=== PATIENT | female | born 1995 | race Caucasian/White ===

== ENCOUNTER → 2018-05-17 10:18 | Outpatient (CLI) | payer OTHER, BC, SELFPAY ==
[2018-05-17 11:21] LABS: Absolute Neutrophil Count 4.9 X10^3/uL (2.0-7.7); Basophil# 0.07 X10^3/uL; Basophil% 0.8 % (0-1); Eosinophil# 1.55 X10^3/uL; Eosinophils% 17.1 % (0-5); Hematocrit 41.4 % (37-47); Hemoglobin 13.3 g/dl (12.0-15.0); Mean Corp Hgb Conc 32.1 g/gl (32-36); Mean Corpuscular Volume 90.2 fL (81-99); Mean Platelet Vol. 9.6 fl (6.2-12.0); Monocyte# 0.58 X10^3/uL; Monocyte% 6.4 % (0-10); Neutrophil # 4.87 X10^3/uL (2.7-7.7); Neutrophil % 53.6 % (47-70); Platelet Count 334 K/mm3 (150-450); RBC Distribution Width CV 13.8 % (11.6-14.6); RBC Distribution Width SD 44.8 fl (35.1-43.9); Red Blood Count 4.59 M/mm3 (4.2-5.4); White Blood Count 9.1 K/mm3 (4.4-11.0)
[2018-05-17 11:26] LABS: POSITIVE COUNT NO; POSITIVE DIFFERENTIAL NO; POSITIVE MORPHOLOGY NO
[2018-05-17 11:58] LABS: AST(SGOT) 16 U/L (15-37); Alanine Aminotransfer ALT/SGPT 19 U/L (13-56); Albumin, Serum 4.1 g/dL (3.2-5.0); Alkaline Phosphatase 73 U/L (45-117); Anion Gap 7 (5-15); BUN 11 mg/dL (7-18); Bilirubin, Direct 0.08 mg/dL (0.00-0.30); Calcium,Total 8.9 mg/dL (8.5-10.1); Chloride 108 mmol/L (98-107); Creatinine, Serum 0.73 mg/dL (0.55-1.02); EST Glomerular Filtration Rate 107 mL/min (>60); Est Glom Filt Rate - Afr Amer 130 mL/min (>60); Globulin 3.3 g/dL (2.2-4.2); Glucose 65 mg/dL (74-106); Potassium 3.7 mmol/L (3.5-5.1); Protein, Total 7.4 g/dL (6.4-8.2); Sodium Level 142 mmol/L (136-145)
[2018-05-17 13:21] LABS: HIV - WCH Non-Reactive (Nonreactive)
[2018-05-19 20:06] LABS: HEPATITIS B SURFACE AG Negative (Negative); QNTFERON TB Mitogen Value > 10.00 IU/mL (.); QNTFERON TB Nil Value 0.08 IU/mL (.); QNTFERON TB2+ Ag Value 0.07 IU/mL (.)
[2018-05-21 08:52] LABS: Hep B Surface Antibodies Reactive (.); Hep C Antibodies <0.1 s/co ratio (0.0-0.9); Hepatitis B Core Ab Total Negative (Negative); QNTIFERON TB Positive Criteria Negative (Negative)
== END ==
PROVIDERS: Visit Provider Dermatology
DX: L40.0 Psoriasis vulgaris (principal); L40.4 Guttate psoriasis; Z79.899 Other long term (current) drug therapy
CPT/HCPCS: 36415; 80048; 80076; 85025; 86480; 86703; 86704; 86706; 86803; 87340

== ENCOUNTER 2019-10-28 10:42 | Emergency (ER) | payer OTHER, SELFPAY ==
[2019-10-28 10:43] VITALS: BP 108/62; PULSE 90; RESP 17; TEMP 36.2; O2SAT 99; BMI 22.6
--- NOTE | 2019-10-28 11:04 | ED.DCSUM_ITS ---
History of Present Illness Chief Complaint: Dental Narrative: Patient presenting for evaluation secondary to dental pain. Patient reports that over the last 5 days she has had a wisdom tooth in her left lower jaw that is been giving her pain. Patient's been taking Tylenol with minimal relief. Patient is 18 weeks . She is a G1, P0. No complications with the . She is amoxicillin allergic. Patient denies any difficulty swallowing or opening her mouth. No fevers. Review of systems otherwise ne gative. Past Medical History - Allergies and Home Meds Allergies/Adverse Reactions: Allergies amoxicillin [Amoxicillin] Allergy (Verified 10/28/19 10:42) [place] Primary Care Physician: NOT,DEFINED [Primary Care Provider] - Prior records reviewed: Yes Past Medical History: None Surgical History: no surgical history Lives: Spouse/ Significant Other Smoking Status: Current every day smoker Alcohol: None Drugs: None - Family History Maternal Family History: Reports: No pertinent history Review of Systems All systems negative except as indicated General: Denies: Fever Eyes: Denies: Visual changes - bilaterally, Diplopia ENT: Reports: - - Ental pain. Denies: Bilateral ear pain, Left ear pain, Right ear pain, Rhinorrhea, Sore throat, - Cardiovascular: Denies: Chest pain, Palpitations Respiratory: Denies: Dyspnea, Cough, Dyspnea on exertion Gastrointestinal: Denies: Abdominal pain, Nausea, Vomiting, Diarrhea, Melena, Hematochezia Genitourinary: Denies: Dysuria, Hematuria, Frequency Musculoskeletal: Denies: Back pain, Extremity Pain Skin: Denies: Rash, Wounds Neurological: Denies: Headache, Weakness, Numbness Physical Exam Vital Signs/Narrative: Vital Signs Temp Pulse Resp BP Pulse Ox 10/28/19 10:43 97.1 F L 90 17 108/62 99 General: Well nourished, Well developed Head: Normocephalic, Atraumatic ENT: Moist mucous membranes Mouth/Throat: Normal inspection lips/gums, - - Impacted the left mandibular wisdom tooth with some surrounding erythema of the gums but no focal evidence of fluctuance. No trismus. Soft sublingual space. Neck: Supple, No lymphadenopathy, Nontender, No JVD Cardiovascular: Regular rate, Regular rhythm Respiratory: No distress Extremities: No edema Skin: Normal color, No rash Neurological: Alert, Oriented x3 Psychological: Normal affect Diagnostic/Tx/Re-eval - Medical Decision Making Patient presented with an impacted wisdom tooth with some localized erythema. Patient is penicillin allergic and will be prescribed clindamycin. ED Disposition - Plan for ED Patient: Disposition: Home or Assisted Living Diagnosis: Dental infection Instructions: ED Tooth Pain Prescriptions: Clindamycin [Cleocin] 300 mg PO 4X/DAY #80 cap Prescription Printed Referrals: NOT,DEFINED [Primary Care Provider] -
== END 2019-10-28 11:26 | disposition home or self-care (01) ==
LOC: ED 11:12
PROVIDERS: Emergency Provider Emergency Medicine
DX: O99.612 Diseases of the digestive system complicating pregnancy, second trimester (principal); K04.7 Periapical abscess without sinus; O99.332 Smoking (tobacco) complicating pregnancy, second trimester; F17.200 Nicotine dependence, unspecified, uncomplicated; Z3A.18 18 weeks gestation of pregnancy
CPT/HCPCS: 99282